=== PATIENT | female | born 1935 | race Caucasian/White ===

== ENCOUNTER → 2018-07-09 | Outpatient (CLI) | payer MEDICARE, BC ==
--- NOTE | 2018-07-09 18:01 | CONS ---
Assessment/Plan Assessment/Plan Hospital Course (Demo Recall) 82-year-old female with end-stage osteoarthritis of the right knee. She has had successful treatment with corticosteroid injections in the past. She like to continue this treatment. This is very reasonable. Plan: Right knee steroid injection Ice Low impact activities Follow-up in 3 to 6 months. Assessment/Plan (Daily) Right knee steroid injection procedure: Risks and benefits of steroid injection reviewed with patient. The risks include infection, failure, pain, swelling, nerve/tendon/ligament damage. The patient verbalized understanding and verbal consent was obtained prior to procedure. The right knee was prepped in a sterile fashion with alcohol and betadine the site of injection was confirmed. Lateral approach was used. The skin and capsule was anesthetized with 3mL 1% lidocaine. The right knee was injected with 2mL 1% lidocaine, 2mL 0.25% bupivacaine, 40mg Depo-Medrol. Injection flowed freely. Good hemostasis was achieved and no complications noted. The patient tolerated the procedure well. Limit activity and ice for 24-48 hours Consultation Date/Type/Reason Admit Date/Time Date of Consultation: Jul 09, 2018 Reason for Consultation Right knee pain Date/Time of Note DATE: 07/09/18 TIME: 17:54 Hx of Present Illness This Is a 82-year-old female with a chief complaint of right knee pain. Previous patient of Dr. Aguilar. The pain began approximately years ago. The patients pain is in the lateral greater than medial aspect of the right knee. Pain is not radiating to the lower leg. The pain is rated as a 7/10. Patient denies complaints of numbness or tingling. The pain is exacerbated by climbing stairs and ambulation. The patient has received a couple steroid injections in the past. Her last steroid injection was in 2016. This significantly helped until a month or 2 ago. She is a history of right knee arthroscopic surgery in 2007. Of note her are going on a 2-month vacation in 2 months Duration: Years Injury: No Walking tolerance: More than 3 blocks Limp: Yes Support: No Swelling: Yes Crepitation: Yes Instability: No Stairs: Difficult Physical Therapy: No Injections: Yes. Last NSAIDs: Contraindicated. History of coronary artery stent Prior surgery: Arthroscopic knee surgery 2007 Back pain: No Hip pain: No Risk of AVN : No Patient denies fever, chills, shortness of breath, chest pain, nausea/vomiting, constipation, diarrhea, numbness, and tingling. Past Medical History Coronary artery disease Allergies: Coded Allergies: No Known Allergy (Verified Allergy, Unknown, 08/28/07) Past Surgical History Right knee arthroscopic knee surgery 2008 Coronary artery stent Family History Significant Family History: no pertinent family hx Social History Alcohol Use: none Smoking Status: Never smoker Drug Use: none Exam/Review of Systems Exam Vitals Weight: 114 pounds Height: 5 foot Heart Rate: 73 Blood Pressure: 137/72 Exam General: Alert, oriented x3. No Acute Distress. Heart: Regular rate and rhythm. Lungs: No respiratory distress. No accessory muscle use. Musculoskeletal: Right Knee This is a well developed female who is alert, oriented times three and in no apparent distress. Skin is intact over the right knee as well as the lower extremity with no abrasions, lacerations, or ulcerations. Observation of the patient's gait reveals an antalgic gait with Valgus thrust. Frontal plane alignment is valgus which is correctable on exam. There is pain on palpation of lateral greater than medial joint line. The patient demonstrates grinding anteriorly with ROM. Range of motion: 10 extension to approximately 1 to degrees of flexion. Collateral ligament testing reveals no instability with varus or valgus stress at 0 and 30 degrees of flexion. Negative Ismael's and negative posterior drawer. Neurovascularly intact with 5/5 EHL/tibialis anterior/gastroc. Sensation intact to light touch in a sural, saphenous, deep peroneal, superficial peroneal, medial and lateral plantar nerve distribution. Palpable, symmetric dorsalis pedis and posterior tibial pulses in both lower extremities. Hip examination normal. Imaging Imaging The patient received a standard set of films today that were personally reviewed. Imaging included a standing bilateral knee AP, PA flexion, merchant views and a dedicated lateral of the affected knee: There is valgus alignment of the knee. There is complete loss of joint space in the lateral compartment and moderate loss of joint space medial and patellofemoral compartment(s). There is osteophyte formation. There is subchondral sclerosis. There are subchondral cysts. Degenerative changes are most severe in the lateral compartment(s) JACKELYN MOLINA MD Jul 09, 2018 18:01
--- NOTE | 2018-07-10 17:10 | RADRPT ---
PROCEDURE: XR Knees. CLINICAL INDICATION: Bilateral knee pain. TECHNIQUE: Total of eight views. Weightbearing frontal, oblique, and lateral views of the both kne es. Patellar views of both knees. COMPARISON: Right knee radiographs dated 09/27/2015. FINDINGS: There has been open reduction and internal fixation of the left proximal tibia with 2 large cannulate d screws. There is no acute fracture and there is no dislocation. There is no joint effusion. Articular surface s are intact. There are degenerative changes of both knees with osteophytes arising from all 3 joint compartment ma rgins bilaterally. There is bilateral medial and lateral joint compartment narrowing with right worse than left. There is associated valgus deformity. There is no lytic or blastic lesion. IMPRESSION: 1. Prior open reduction and internal fixation of the left proximal tibia. 2. Moderate to severe degenerative changes of both knees with right worse than left. 3. Bilateral valgus deformity. 4. Otherwise unremarkable study. RPTAT: QQ .Ed Spivey MD, MD Date Time Electronically viewed and signed by .Ed Spivey MD, on 07/10/2018 17:09 .R/
== END | disposition home or self-care (01) ==
LOC: HKI 14:57
PROVIDERS: ATTEND Orthopaedic Surgery Adult Reconstructive Orthopaedic Surgery
DX: M17.11 Unilateral primary osteoarthritis, right knee (principal)
CPT/HCPCS: 20610; 73564; G0463